=== PATIENT | male | born 1965 | race Caucasian/White ===

== ENCOUNTER 2018-03-29 07:35 | Emergency (ER) | payer OTHER ==
[~2018-03-29] VITALS: Ht 185.4 cm; Wt 103.1 kg
[~2018-03-29 07:35] MED LIST: CRESTOR40 MG PO
[2018-03-29] MEDS ORDERED: LIDODERM 5% P1 PATCH TD (10:01)
[2018-03-29] MEDS ORDERED: FLEXERIL10 MG PO (10:01)
[2018-03-29] MEDS ORDERED: PREDNISONE10 MG PO (10:01)
[2018-03-29 10:16] VITALS: BP 122/80
== END 2018-03-29 10:19 | disposition home or self-care (01) ==
LOC: EME 07:35
DX: M54.42 Lumbago with sciatica, left side (principal); Y93.53 Activity, golf; E78.5 Hyperlipidemia, unspecified; Z87.442 Personal history of urinary calculi
CPT/HCPCS: 99281; 99284; J3010; J7512